=== PATIENT | female | born 1995 | race Two or more races ===

== ENCOUNTER 2017-06-16 14:03 | Emergency (ER) | payer OTHER ==
[2017-06-16 14:24] VITALS: BP 117/59; PULSE 70; TEMP 98.4; BMI 30.9
--- NOTE | 2017-06-16 15:30 | PDOC ---
History of Present Illness - General Chief Complaint: Chest Pain Stated Complaint: CHEST PAIN Time Seen by Provider: 06/16/17 14:53 History Source: Patient - History of Present Illness Timing/Duration: reports: other Associated Symptoms: reports: chest pain/soreness. denies: cough, fever/chills , lightheadedness, wheezing Past History - Past Medical History Allergies/Adverse Reactions: Allergies Allergy/AdvReac Type Severity Reaction Status Date / Time No Known Allergies Allergy Verified 06/16/17 14:19 Home Medications: Ambulatory Orders NK [No Known Home Medication] 06/16/17 Anemia: No Asthma: Yes (last used inhaler 05/23/16) Cancer: No Cardiac Disorders: No CVA: No COPD: No CHF: No Dementia: No Diabetes: No GI Disorders: No Disorders: No HTN: Yes (PI) Hypercholesterolemia: No Liver Disease: No Seizures: No Thyroid Disease: No - Reproductive History (#): 1 Para: 0 Therapeutic (s) & number: No Spontaneous : 0 - Immunization History Immunization Up to Date: Yes - Psycho/Social/Smoking Cessation Hx Anxiety: No Suicidal Ideation: No Smoking Status: No Smoking History: Never smoked Have you smoked in the past 12 months: No Number of Cigarettes Smoked Daily: 0 Hx Alcohol Use: No Drug/Substance Use Hx: No Substance Use Type: None Hx Substance Use Treatment: No Review of Systems - Review of Systems Constitutional: No: Chills, Fever Respiratory: No: Cough, Wheezing Cardiac (ROS): Yes: Chest Pain. No: Lightheadedness, Palpitations, Syncope ABD/GI: No: Nausea, Vomiting *Physical Exam - Vital Signs Last Vital Signs Temp Pulse Resp BP Pulse Ox 98.4 F 70 19 117/59 100 06/16/17 14:20 06/16/17 14:20 06/16/17 14:20 06/16/17 14:20 06/16/17 14:20 - Physical Exam General Appearance: Yes: Appropriately Dressed. No: Apparent Distress HEENT: positive: Normal Voice Neck: positive: Supple Respiratory/Chest: positive: Lungs Clear, Normal Breath Sounds. negative: Respiratory Distress Cardiovascular: positive: Regular Rate, S1, S2 Gastrointestinal/Abdominal: positive: Soft. negative: Tender Integumentary: positive: Dry, Warm Neurologic: positive: Fully Oriented, Alert, Normal Mood/Affect Heart Score/ECG Review - ECG Intrepretation Comment:: 06/16/17 16:11 Twelve-lead EKG was performed and reviewed by me. There is normal sinus rhythm with a normal rate. The axis is normal. The intervals are normal. There are no ST or T wave abnormalities. Impression: Normal twelve-lead EKG ED Treatment Course - RADIOLOGY Radiology Studies Ordered: Category Date Time Status CHEST PA & LAT [RAD] Stat Radiology 06/16/17 15:24 Ordered Medical Decision Making - Medical Decision Making 06/16/17 15:24 21 yo F, no sig hx, non-hormonal IUD in place, here w/ CP. Patient complaining of sharp, non-radiating substernal chest pain that lasts for seconds and then resolves x several weeks w/ no exacerbating/alleviating factors. Today, states she felt short of breath vs CP w/ deep respiration per pt and decided to come to ED for first time today for evaluation. No diaphoresis, dizziness, n/v, palpitations, leg pain or swelling. No recent URI sxs. No obvious RFs for DVT/ PE. See exam CP No pmhx Unlikely ACS or pericarditis, PERCs out Stable and well lorena in ED w/ unremarkable exam -ekg/cxr -anticipate dc w/ pmd f/u 06/16/17 15:29 06/16/17 16:11 EKG and CXR were normal. Pt stable for discharge w/ PMD f/u as needed *DC/Admit/Observation/Transfer Diagnosis at time of Disposition: Chest pain Qualifiers: Chest pain type: unspecified Qualified Code(s): R07.9 - Chest pain, unspecified - Discharge Dispostion Disposition: HOME Condition at time of disposition: Good - Patient Instructions Printed Discharge Instructions: DI for Atypical Chest Pain Additional Instructions: Your ekg and cxr were normal in ER today. If pain persists, please follow up with your PMD
--- NOTE | 2017-06-17 09:38 | EKG ---
Test Reason : Blood Pressure : / mmHG Vent. Rate : 069 BPM Atrial Rate : 069 BPM P-R Int : 158 ms QRS Dur : 088 ms QT Int : 410 ms P-R-T Axes : 023 041 025 degrees QTc Int : 439 ms NORMAL SINUS RHYTHM NORMAL ECG NO PREVIOUS ECGS AVAILABLE Confirmed by LOPEZ XIONG, FRANCI ([id number]) on 06/17/2017 9:37:45 AM Referred By: Confirmed By:FRANCI MARROQUIN MD
== END 2017-06-16 16:18 | disposition home or self-care (01) ==
LOC: JERFT 14:03
DX: R07.9 Chest pain, unspecified (principal)
CPT/HCPCS: 71020-TC; 84703; 93005; 93010; 99281-25

== ENCOUNTER 2018-04-14 21:50 | Emergency (ER) | payer OTHER ==
--- NOTE | 2018-04-14 21:59 | PDOC ---
History of Present Illness - General Chief Complaint: Nausea/Vomiting Stated Complaint: NA/NAUSEA/VOMITING Time Seen by Provider: 04/14/18 21:58 History Source: Patient Exam Limitations: No Limitations - History of Present Illness Initial Comments: 04/14/18 22:16 This is a 22-year-old female who comes in complaining of 2 weeks of headache associated with some nausea and vomiting. Patient last vomited 2 days ago. Patient says she feels nauseous and has had decreased appetite. Patient denies any neck pain or fevers. Patient has history of headaches in the past but she said they've never persisted as long as this one. Patient did not take anything for the headache. Patient denies any abdominal pain or diarrhea. Patient denies any photophobia. PAST MEDICAL HISTORY: no significant history PAST SURGICAL HISTORY: no significant history FAMILY HISTORY: no pertinant history SOCIAL HISTORY: Pt lives with family and is employed. MEDICATIONS: reviewed ALLERGIES: As per nursing notes Review of Systems General: No fevers or chills, no weakness, no weight loss HEENT: No change in vision. No sore throat,. No ear pain CardioVascular: No chest pain or shortness of breath Respiratory:No cough, or wheezing. Gastrointestinal: + nausea, + vomitting, no diarrhea or constipation, No rectal bleeding Genitourinary: No dysuria, hematuria, or frequency Musculoskeletal: No joint or muscle pain or swelling Neurologic: + headache, vertigo, dizziness or loss of consciousness Psychiatric: nor depression Skin: No rashes or easy bruising Endocrine: no increased thirst or abnormal weight change Allergic: no skin or latex allergy All other systems reviewed and normal GENERAL: The patient is awake, alert, and fully oriented, in no acute distress. HEAD: Normal with no signs of trauma. There is no tenderness over palpation of the frontal or maxillary sinuses. The neck is supple there is no meningeal signs or nuchal rigidity. EYES: Pupils equal, round and reactive to light, extraocular movements intact, sclera anicteric, conjunctiva clear. EXTREMITIES: Normal range of motion, no edema. NEUROLOGICAL: Normal speech, normal gait. grossly intact PSYCH: Normal mood, normal affect. SKIN: Warm, Dry, normal turgor, no rashes or lesions noted. Assessment and plan: This is a 22-year-old female who comes in complaining of headache with some nausea. Patient given Toradol and Pepcid with relief of her symptoms. Patient feels much better. Patient had a CAT scan that was negative for any acute intracranial pathology Patient's symptoms are most likely secondary to tension or migraine-type headache. Patient was reassured and discharged home. Patient given copies of her head CT report 04/14/18 23:17 Past History - Past Medical History Allergies/Adverse Reactions: Allergies Allergy/AdvReac Type Severity Reaction Status Date / Time No Known Allergies Allergy Verified 06/16/17 14:19 Home Medications: Ambulatory Orders NK [No Known Home Medication] 06/16/17 Anemia: No Asthma: Yes (last used inhaler 05/23/16) Cancer: No Cardiac Disorders: No CVA: No COPD: No CHF: No Dementia: No Diabetes: No GI Disorders: No Disorders: No HTN: Yes ([facility]) Hypercholesterolemia: No Liver Disease: No Seizures: No Thyroid Disease: No - Reproductive History (#): 1 Para: 0 Therapeutic (s) & number: No Spontaneous : 0 - Immunization History Immunization Up to Date: Yes - Suicide/Smoking/Psychosocial Hx Smoking Status: No Smoking History: Never smoked Have you smoked in the past 12 months: No Number of Cigarettes Smoked Daily: 0 Hx Alcohol Use: No Drug/Substance Use Hx: No Substance Use Type: None Hx Substance Use Treatment: No *DC/Admit/Observation/Transfer Diagnosis at time of Disposition: Headache Qualifiers: Headache type: tension-type Headache chronicity pattern: acute headache Intractability: not intractable Qualified Code(s): G44.209 - Tension-type headache, unspecified, not intractable - Discharge Dispostion Disposition: HOME Condition at time of disposition: Good Decision to Admit order: No - Referrals - Patient Instructions Additional Instructions: If the pain returns take Tylenol or Motrin as directed on the bottle. Return to the emergency department immediately with ANY new, persistent or worsening symptoms. Continue any medications as previously prescribed by your physician. You should follow up with your primary doctor as soon as possible regarding today's emergency department visit. . Please make sure your doctor reviews the results of your emergency evaluation. Thank you for coming to the Emergency Department today for your care. It was a pleasure to see you today. Please note that your evaluation is INCOMPLETE until you follow-up with your doctor. - Post Discharge Activity
[2018-04-14 22:02] VITALS: BP 100/62; PULSE 77; TEMP 98.5; BMI 19.7
[2018-04-14] MEDS ORDERED: KETOROLAC TROMETHAMINE 60 MG/2 ML VIAL IM ONE (22:15)
[2018-04-14] MEDS ORDERED: METOCLOPRAMIDE HCL 10 MG TABLET (FP) PO ONE ×2 (22:15→22:23)
[2018-04-14] MEDS ORDERED: KETOROLAC TROMETHAMINE 60 MG/2 ML VIAL ONE (22:23)
== END 2018-04-14 23:21 | disposition home or self-care (01) ==
LOC: FER 21:50
PROC: 3E0233Z Introduction of Anti-inflammatory into Muscle, Percutaneous Approach (ICD-10-PCS; principal; 2018-04-14)
DX: G44.209 Tension-type headache, unspecified, not intractable (principal); I10 Essential (primary) hypertension; J45.909 Unspecified asthma, uncomplicated
CPT/HCPCS: 70450-TC; 84703; 96372; 99282-25

== ENCOUNTER 2018-09-18 22:40 | Emergency (ER) | payer OTHER ==
[2018-09-18 22:53] VITALS: TEMP 97.8; BMI 30.9
--- NOTE | 2018-09-18 23:28 | PDOC ---
History of Present Illness - General Chief Complaint: Nausea/Vomiting Stated Complaint: NAUSEA/VOMITING Time Seen by Provider: 09/18/18 23:19 History Source: Patient - History of Present Illness Initial Comments: 09/18/18 23:36 The patient is a 22 year old female with a PMH of Asthma (no hospitalizations, no intubations) who presents to our ED c/o 3 week h/o vomiting. States she has been vomiting whitish emesis 2x daily for the last 3 weeks. Tolerating liquid PO intake. No fevers/chills, abdominal pain, diarrhea/constipation, dysuria/ hematuria. Last BM was prior to presentation and was normal. Denies any possibility of . States she was evaluated at [facility] 2-3 weeks previous for her symptoms at which time urine was negative and she was discharged home with supportive care. NKDA Surgical: C/S Social: denies toxic habits PMD: recently retired, will refer to resident clinic Past History - Past Medical History Allergies/Adverse Reactions: Allergies Allergy/AdvReac Type Severity Reaction Status Date / Time No Known Allergies Allergy Verified 09/18/18 23:55 Home Medications: Ambulatory Orders NK [No Known Home Medication] 06/16/17 Anemia: No Asthma: Yes (last used inhaler 05/23/16) Cancer: No Cardiac Disorders: No CVA: No COPD: No CHF: No Dementia: No Diabetes: No GI Disorders: No Disorders: No HTN: Yes (PIH) Hypercholesterolemia: No Liver Disease: No Seizures: No Thyroid Disease: No - Reproductive History (#): 1 Para: 0 Therapeutic (s) & number: No Spontaneous : 0 - Immunization History Immunization Up to Date: Yes - Suicide/Smoking/Psychosocial Hx Smoking Status: No Smoking History: Never smoked Have you smoked in the past 12 months: No Number of Cigarettes Smoked Daily: 0 Hx Alcohol Use: No Drug/Substance Use Hx: No Substance Use Type: None Hx Substance Use Treatment: No Review of Systems - Review of Systems Constitutional: No: Chills, Fever HEENTM: No: Blurred Vision, Double Vision Respiratory: No: Cough, Shortness of Breath Cardiac (ROS): No: Chest Pain, Lightheadedness, Palpitations, Syncope ABD/GI: Yes: Nausea, Vomiting. No: Constipated, Diarrhea, Abdominal cramping, Tarry Stools : No: Burning, Dysuria *Physical Exam - Vital Signs Last Vital Signs Temp Pulse Resp BP Pulse Ox 97.8 F 76 20 119/72 98 09/18/18 22:51 09/18/18 22:51 09/18/18 22:51 09/18/18 22:51 09/18/18 22:51 - Physical Exam General Appearance: Yes: Nourished, Obese HEENT: positive: Normal Voice, Sinus Tenderness Neck: positive: Trachea midline, Supple Respiratory/Chest: positive: Lungs Clear, Normal Breath Sounds. negative: Labored Respiration, Rapid RR Cardiovascular: positive: S1, S2, Systolic Murmur Gastrointestinal/Abdominal: positive: Normal Bowel Sounds, Soft. negative: Distended, Guarding, Rebound, Tenderness, Hernia, Mass Musculoskeletal: negative: CVA Tenderness (R), CVA Tenderness (L) Extremity: positive: Normal Capillary Refill, Normal Inspection Integumentary: positive: Normal Color, Dry, Warm Neurologic: positive: Fully Oriented, Alert Moderate Sedation - Procedure Monitoring Vital Signs: Procedure Monitoring Vital Signs Temperature 97.8 F 09/18/18 22:51 Pulse Rate 76 09/18/18 22:51 Respiratory Rate 20 09/18/18 22:51 Blood Pressure 119/72 09/18/18 22:51 O2 Sat by Pulse Oximetry (%) 98 09/18/18 22:51 ED Treatment Course - LABORATORY CBC & Chemistry Diagram: 09/18/18 23:50 09/18/18 23:50 Medical Decision Making - Medical Decision Making 09/18/18 23:36 22 year old female presents with three week h/o NBNB emesis. VS unremarkable. Frontal diagnosis: gastritis, , cyclic vomiting syndrome. Will obtain CMP to r/o electrolyte derangement 2/2 to emesis. Urine . IV fluid + Zofran. Reassess. 09/19/18 00:48 CBC shows mild leukocytosis (12.6) likely reactive CMP shows mildly elevated alkaline phosphate (125) - suggestive of bilary colic. 09/19/18 01:51 Urine negative. Patient symptomatically improved, alert, ambulatory. At this time, patient safe for d/c home. Clinical impression includes gastritis vs food sensitivity vs bilary colic. Patient counseled to avoid fatty foods. Will refer to resident clinic *DC/Admit/Observation/Transfer Diagnosis at time of Disposition: Nausea & vomiting - Discharge Dispostion Disposition: HOME Condition at time of disposition: Good Decision to Admit order: No - Referrals Referrals: Warren Jacinto MD [Staff Physician] - - Patient Instructions Printed Discharge Instructions: DI for Nausea -- Adult, DI for Vomiting -- Adult Additional Instructions: You were evaluated today for nausea and vomiting. Your labs showed no concerning findings and your test was negative. At this time you are safe for discharge home. Please make a follow-up appointment with Dr. Orville Kelley to establish primary care and for further evaluation. Your care is not complete until you follow-up with a primary care doctor. Return to the Emergency Department for any new/worsening/concerning symptoms. - Post Discharge Activity
[2018-09-18] MEDS ORDERED: SODIUM CHLORIDE 0.9% 500 ML INFUS.BAG IV ONE (23:32)
[2018-09-18] MEDS ORDERED: ONDANSETRON 4 MG/2 ML VIAL IVPUSH ONE (23:33)
[2018-09-18] MEDS ORDERED: ONDANSETRON 4 MG/2 ML VIAL ONE (23:36)
[2018-09-19 00:05] LABS: BASO % 0.7 % (0-2.0); EOS % 2.1 % (0-4.5); HEMATOCRIT 35.5 % (32.4-45.2); HEMOGLOBIN 12.1 GM/dL (10.7-15.3); LYMPH % 31.9 % (8-40); MCH 29.8 pg (25.7-33.7); MCHC 34.1 g/dl (32.0-36.0); MEAN CELL VOLUME 87.4 fl (80-96); MEAN PLT VOLUME 9.5 fl (7.5-11.1); NEUT % 58.3 % (42.8-82.8); PLATELET COUNT 263 K/MM3 (134-434); RBC 4.06 M/mm3 (3.60-5.2); RDW 13.4 % (11.6-15.6); WHITE BLOOD COUNT 12.3 K/mm3 (4.0-10.0)
--- NOTE | 2018-09-19 01:01 | PDOC ---
Attending Attestation - HPI HPI: 09/19/18 01:25 The patient is a 22 year old female with a significant PMH of asthma with no prior intubations or hospitalizations who presents to the emergency department with nausea and vomiting for the past 3 weeks. Patient states she is experiencing white colored vomit at least twice daily. Patient has been unable to tolerate solid food intake, but is able to hold down liquids. Patient ate prior to coming to the ED, but also vomited immediately after. Patient was evaluated at [facility] two weeks ago, and was told she was not then. The patient denies abdominal pain, chest pain, shortness of breath, headache and dizziness. Denies fever, chills, diarrhea and constipation. Denies dysuria, frequency, urgency and hematuria. Allergies: NKA Past surgical history: None reported. Social history: No reported drug or cigarette use. Social drinker. <Catherine Arnold - Last Filed: 09/19/18 01:25> - Resident Resident Name: Paris Cardona - ED Attending Attestation I have performed the following: I have examined & evaluated the patient, The case was reviewed & discussed with the resident, I agree w/resident's findings & plan - HPI HPI: 09/19/18 02:09 Pt has no weight loss and she appears well and well hydrated. - Physicial Exam PE: 09/19/18 02:08 Agree with resident exam - Medical Decision Making 09/19/18 02:08 Pt has normal labs and her alk phos is minimally elevated. She has no other findings. She appears well. She mentions that she has mostly post tussive vomiting and that it all began with the cold weather. She has no wheezing today. She will be discharged home <Leann Maldonado - Last Filed: 09/19/18 02:10>
[2018-09-19 01:19] LABS: ALBUMIN 3.5 g/dl (3.4-5.0); ALK PHOS 125 U/L (45-117); ANION GAP 8 MMOL/L (8-16); BILIRUBIN,TOTAL 0.2 mg/dL (0.2-1); BLOOD UREA NITROGEN 17 mg/dL (7-18); CALCIUM 8.5 mg/dL (8.5-10.1); CHLORIDE 110 mmol/L (98-107); CO2 22 mmol/L (21-32); CREATININE 0.9 mg/dL (0.55-1.3); GLUCOSE,RANDOM 92 mg/dL (74-106); POTASSIUM 4.3 mmol/L (3.5-5.1); SGOT/AST 26 U/L (15-37); SGPT/ALT 39 U/L (13-61); SODIUM 141 mmol/L (136-145); TOT PROT 7.4 g/dl (6.4-8.2)
[2018-09-19 02:10] VITALS: BP 120/64; PULSE 72
== END 2018-09-19 02:10 | disposition home or self-care (01) ==
LOC: JER 22:40
PROC: 3E033GC Introduction of Other Therapeutic Substance into Peripheral Vein, Percutaneous Approach (ICD-10-PCS; principal; 2018-09-18)
DX: R11.2 Nausea with vomiting, unspecified (principal); J45.909 Unspecified asthma, uncomplicated; I10 Essential (primary) hypertension
CPT/HCPCS: 36415; 80053; 84703; 85025; 96374; 99282-25

== ENCOUNTER 2019-02-14 16:35 | Emergency (ER) | payer OTHER ==
[2019-02-14 16:45] VITALS: BP 107/50; PULSE 70; TEMP 98.2; BMI 42.9
--- NOTE | 2019-02-14 16:51 | PDOC ---
Rapid Medical Evaluation Chief Complaint: Back Pain Time Seen by Provider: 02/14/19 16:41 Medical Evaluation: Allergies Allergy/AdvReac Type Severity Reaction Status Date / Time No Known Allergies Allergy Verified 02/14/19 16:42 02/14/19 16:44 Pt presents to the ED with c/o: lbp x 1 week, denies lbp/sciatica, pt went to urgent care clinic and received toradol im which she states pain worsened Pt on brief exam: l3-5 tenderness with sciatica tenderness, no abd pain Pt ordered for: urine and lumbar xray Pt to proceed to the ED
[2019-02-14] MEDS ORDERED: diazePAM 5 MG TABLET PO ONE (17:16)
[2019-02-14] MEDS ORDERED: diazePAM 5 MG TABLET ONE (17:21)
--- NOTE | 2019-02-14 17:25 | PDOC ---
History of Present Illness - General Chief Complaint: Back Pain Stated Complaint: LOWER BACK PAIN Time Seen by Provider: 02/14/19 16:41 History Source: Patient Exam Limitations: No Limitations - History of Present Illness Initial Comments: 02/14/19 17:17 Patient came after being seen by PMD today at [address] [place] [address] for worsened back pain. States had onset of pain flexibly one week ago and is progressively worsened. Was seen there today, given injection of Toradol, order for MRI of lumbar spine was written but no insurance approval obtained and patient given prescription for cyclobenzaprine, Naprosyn, and gabapentin. She did not taken any of those medications other than the injection of Toradol at the clinic, but came to emergency department because she felt her pain was worsening. Denies fever, denies URI symptoms or any abdominal symptoms. 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 Has 2-year-old son that weighs 50 pounds, so combined with car seats, strollers, and caring son 02/14/19 19:54 Occurred: reports: last week Severity: reports: moderate, severe Pain Location: reports: back Method of Injury: Yes: unknown Loss of Consciousness: no loss of consciousness Associated Symptoms (Fall): denies symptoms, muscle spasms Past History - Travel Traveled outside of the country in the last 30 days: No Close contact w/someone who was outside of country & ill: No - Past Medical History Allergies/Adverse Reactions: Allergies Allergy/AdvReac Type Severity Reaction Status Date / Time No Known Allergies Allergy Verified 02/14/19 16:42 Home Medications: Ambulatory Orders NK [No Known Home Medication] 06/16/17 Anemia: No Asthma: Yes (last used inhaler 05/23/16) Cancer: No Cardiac Disorders: No CVA: No COPD: No CHF: No Dementia: No Diabetes: No GI Disorders: No Disorders: No HTN: Yes (PI) Hypercholesterolemia: No Liver Disease: No Seizures: No Thyroid Disease: No - Reproductive History (#): 1 Para: 0 Therapeutic (s) & number: No Spontaneous : 0 - Immunization History Immunization Up to Date: Yes - Suicide/Smoking/Psychosocial Hx Smoking Status: No Smoking History: Never smoked Have you smoked in the past 12 months: No Number of Cigarettes Smoked Daily: 0 Information on smoking cessation initiated: No Hx Alcohol Use: No Drug/Substance Use Hx: No Substance Use Type: None Hx Substance Use Treatment: No Review of Systems - Review of Systems Able to Perform ROS?: Yes Is the patient limited [place] proficient: Yes Constitutional: Yes: Symptoms Reported, See HPI, Malaise. No: Chills, Fever HEENTM: No: Symptoms Reported Respiratory: Yes: Symptoms reported, See HPI Musculoskeletal: Yes: Symptoms Reported, See HPI, Back Pain, Muscle Pain, Muscle Weakness Integumentary: Yes: Symptoms Reported, See HPI Neurological: Yes: Symptoms reported, See HPI All Other Systems: Reviewed and Negative *Physical Exam - Vital Signs Last Vital Signs Temp Pulse Resp BP Pulse Ox 98.2 F 70 16 107/50 L 99 02/14/19 16:42 02/14/19 16:42 02/14/19 16:42 02/14/19 16:42 02/14/19 16:42 - Physical Exam General Appearance: Yes: Nourished, Appropriately Dressed, Apparent Distress, Moderate Distress HEENT: positive: EOMI, RENÉE, Normal ENT Inspection, TMs Normal, Pharynx Normal Neck: positive: Supple. negative: Tender Respiratory/Chest: positive: Lungs Clear, Normal Breath Sounds Musculoskeletal: positive: Normal Inspection, Muscle Spasm (tense tight musculature at waistline and below to upper sacral area with palpable spasm noted bilaterally, worse on the right than the left. Unable to flex and extend waist due to the spasm pain radiates through buttock midpoint and down posterior aspect. Ambulatory but walks slowly. Neurovascular intact to feet , no saddle anesthesia.). negative: Vertebral Tenderness (has no true vertebral tenderness or crepitus.) Extremity: positive: Normal Capillary Refill, Normal Inspection, Normal Range of Motion. negative: Tender Integumentary: positive: Normal Color, Dry, Warm Neurologic: positive: manager storage II-XII NML intact, Fully Oriented, Alert, Normal Mood/ Affect, Normal Response, Motor Strength 5/5 Progress Note - Progress Note Progress Note: Severe low back spasm, will follow-up with PMD in one to 2 days and has order for MRI of lumbar spine but has not discussed with insurance carrier thus far. Has not filled any of her prescriptions prescribed by her PMD and will do so on the way home, given 1 dose of Valium 5 mg here in addition to the Toradol given in private physicians office will follow NSAIDs in antispasmodic regime *DC/Admit/Observation/Transfer Diagnosis at time of Disposition: Low back strain Qualifiers: Encounter type: initial encounter Qualified Code(s): S39.012A - Strain of muscle, fascia and tendon of lower back, initial encounter - Discharge Dispostion Disposition: HOME Condition at time of disposition: Stable Decision to Admit order: No - Referrals Referrals: Emory Martinez MD [Primary Care Provider] - - Patient Instructions Printed Discharge Instructions: DI for Back Strain or Sprain Additional Instructions: Rest, no heavy lifting or exercise until pain is resolved Hot soaks to neck and low back as often as possible/hot showers or Jacuzzis No massage or therapy until spasm is gone Continue Naprosyn 500 mg tablet, 1 tablet every 8 hours for the next 3 days then as needed for pain and swelling Cyclobenzaprine 1-10mg every 8 hours as needed for spasm If not significant improvement within 24 hours with medication and rest regime, followup with private physician for change in medications and /or therapy. - Post Discharge Activity Forms/Work/School Notes: Back to Work
== END 2019-02-14 17:40 | disposition home or self-care (01) ==
LOC: JERFT 16:35
DX: S39.012A Strain of muscle, fascia and tendon of lower back, initial encounter (principal); X50.0XXA Overexertion from strenuous movement or load, initial encounter; X50.9XXA Other and unspecified overexertion or strenuous movements or postures, initial encounter; Y93.89 Activity, other specified; Y92.89 Other specified places as the place of occurrence of the external cause; Y99.8 Other external cause status; M62.830 Muscle spasm of back
CPT/HCPCS: 84703; 99281-25

== ENCOUNTER 2019-02-17 18:26 | Emergency (ER) | payer OTHER ==
[2019-02-17 18:44] VITALS: TEMP 98; BMI 42.7
[2019-02-17] MEDS ORDERED: predniSONE 20 MG TABLET (UD) PO ONE (19:40)
[2019-02-17] MEDS ORDERED: predniSONE 20 MG TABLET (UD) ONE (19:43)
--- NOTE | 2019-02-17 19:48 | PDOC ---
Documentation entered by Shobha Rincon SCRIBE, acting as scribe for Cora Rodgers MD. Cora Rodgers MD: This documentation has been prepared by the Sergey rasmussen Lincy, SCRIBE, under my direction and personally reviewed by me in its entirety. I confirm that the documentation accurately reflects all work, treatment, procedures, and medical decision making performed by me. History of Present Illness - General Chief Complaint: Back Pain Stated Complaint: LOW BACK PAIN History Source: Patient Exam Limitations: No Limitations - History of Present Illness Initial Comments: 02/17/19 19:55 The patient is a 23-year-old female with a past medical history significant for asthma presents to the emergency department with lower back pain. The patient presents with 2 weeks of lower back pain that radiates down to the left thigh, associated with left thigh tingling. The patient reports the pain is sharp in quality, thats aggravated with sitting or walking. The patient reports following up with PCP on 02/14 for the pain who prescribed the patient cyclobenzaprine, Naprosyn, and gabapentin. The patient reports being compliant with the medication without relief. The patient reports following up with PCP again yesterday (02/16), who increased the dosage of the medication. The patient reports she is walking for insurance approval for a lumbar MRI. Denies dysuria or hx of kidney stones. Denies urinary or bowel incontinence or saddle anesthesia Allergies: NKDA Social history: No tobacco, alcohol or recreational drug use reported. PCP: Dr. Aponte. Past History - Past Medical History Allergies/Adverse Reactions: Allergies Allergy/AdvReac Type Severity Reaction Status Date / Time No Known Allergies Allergy Verified 02/17/19 19:15 Home Medications: Ambulatory Orders Cyclobenzaprine HCl [Flexeril 10 mg] 10 mg PO TID PRN 02/17/19 Gabapentin [Neurontin] 300 mg PO TID 02/17/19 Methylprednisolone [Medrol Dose Syed] 4 mg PO ASDIR #21 tablet 02/17/19 Naproxen [Naprosyn -] 500 mg PO BID PRN 02/17/19 Anemia: No Asthma: Yes (last used inhaler 05/23/16) Cancer: No Cardiac Disorders: No CVA: No COPD: No CHF: No Dementia: No Diabetes: No GI Disorders: No Disorders: No HTN: Yes (PIH) Hypercholesterolemia: No Liver Disease: No Seizures: No Thyroid Disease: No - Reproductive History (#): 1 Para: 0 Therapeutic (s) & number: No Spontaneous : 0 - Immunization History Immunization Up to Date: Yes - Suicide/Smoking/Psychosocial Hx Smoking Status: No Smoking History: Never smoked Have you smoked in the past 12 months: No Number of Cigarettes Smoked Daily: 0 Hx Alcohol Use: No Drug/Substance Use Hx: No Substance Use Type: None Hx Substance Use Treatment: No Review of Systems - Review of Systems Able to Perform ROS?: Yes Comments:: 02/17/19 19:55 GENERAL/CONSTITUTIONAL: No fever or chills. No weakness. HEAD, EYES, EARS, NOSE AND THROAT: No change in vision. No ear pain or discharge. No sore throat. CARDIOVASCULAR: No chest pain or shortness of breath. RESPIRATORY: No cough, wheezing, or hemoptysis. GASTROINTESTINAL: No nausea, vomiting, diarrhea or constipation. GENITOURINARY: No dysuria, frequency, or change in urination. MUSCULOSKELETAL: +lower back pain that radiates to the left thigh. No joint or muscle swelling or pain. No neck or upper back pain. SKIN: No rash NEUROLOGIC: No headache, vertigo, loss of consciousness, or change in strength/ sensation. ENDOCRINE: No increased thirst. No abnormal weight change. HEMATOLOGIC/LYMPHATIC: No anemia, easy bleeding, or history of blood clots. ALLERGIC/IMMUNOLOGIC: No hives or skin allergy. *Physical Exam - Vital Signs Last Vital Signs Temp Pulse Resp BP Pulse Ox 98.0 F 72 16 148/100 100 02/17/19 18:28 02/17/19 18:28 02/17/19 18:28 02/17/19 18:28 02/17/19 18:28 - Physical Exam Comments: 02/17/19 19:55 GENERAL: Awake, alert, and fully oriented, in no acute distress HEAD: No signs of trauma EYES: PERRLA, EOMI, sclera anicteric, conjunctiva clear ENT: Auricles normal inspection, hearing grossly normal, nares patent. Moist mucosa NECK: Normal ROM, supple, no lymphadenopathy, JVD, or masses LUNGS: Breath sounds equal, clear to auscultation bilaterally. No wheezes, and no crackles HEART: Regular rate and rhythm, normal S1 and S2, no murmurs, rubs or gallops ABDOMEN: Soft, nontender. No guarding, no rebound. No masses EXTREMITIES: +Negative straight leg, 5/5 strength bilaterally to the lower extremity. Sensation intact. Normal range of motion, no edema. No erythema or tenderness. DP/PT pulses 2+ and symmetric. Warm and well perfused. NEUROLOGICAL: Moves all extremities. Normal speech, normal gait SKIN: Warm, Dry, normal turgor, no rashes or lesions noted. Medical Decision Making - Medical Decision Making 02/17/19 19:45 pt is a 23 yo obese female here with low back pain, was seen for the same 02/14, 4 days ago and seen by her pcp yesterday. has been taking flexeril, gabapanetin , and naproxen, mild relief. no bowel or bladder incontinence, no fever or chills. no urinary complaints. no new weakness. pain radiates down her left leg to her knee, occasionally past her knee. worse wtih movement and bending, or going from sitting to standing. only injury was slipped at work 2 mo ago but states she landed forward on her knees. 02/17/19 20:04 pt ambulating without difficulty. given percocet and prednisone. dc home. rx for medrol dose syed sent to pharmacy. referral to nuerology. *DC/Admit/Observation/Transfer Diagnosis at time of Disposition: Low back strain - Discharge Dispostion Disposition: HOME Condition at time of disposition: Good Decision to Admit order: No - Prescriptions Prescriptions: Methylprednisolone [Medrol Dose Syed] 4 mg PO ASDIR #21 tablet - Referrals Referrals: Helder Aponte MD [Primary Care Provider] - Curtis Du MD [Staff Physician] - - Patient Instructions Printed Discharge Instructions: Back Pain (Alternative Therapy) Additional Instructions: you should avoid heavy lifting for at least one week. seek referral for physical therapy from your primary doctor. you can also follow up with a nuerologist. see referal information for dr Du. call to schedule. return for sudden onset leg weakness, bowel or bladder incontinence, numbness or any concerns. you should follow up with the out patient MRI prescribed by your primary doctor. continue taking gabapentin, flexeril and the naproxen as prescribed by your primary doctor. nan ddition you can take a steroid course " Medrol Dose Syed " that i have prescribed. take as instructed daily to help with inflammation in your back. - Post Discharge Activity Forms/Work/School Notes: Back to Work
[2019-02-17 20:07] VITALS: BP 130/80; PULSE 66
== END 2019-02-17 20:15 | disposition home or self-care (01) ==
LOC: FER 18:26
DX: S39.012A Strain of muscle, fascia and tendon of lower back, initial encounter (principal); X58.XXXA Exposure to other specified factors, initial encounter; Y93.89 Activity, other specified; Y92.89 Other specified places as the place of occurrence of the external cause; E66.9 Obesity, unspecified; I10 Essential (primary) hypertension; J45.909 Unspecified asthma, uncomplicated
CPT/HCPCS: 99282-25

== ENCOUNTER 2019-06-19 21:12 | Emergency (ER) | payer OTHER ==
--- NOTE | 2019-06-19 21:16 | PDOC ---
History of Present Illness - General Chief Complaint: Chest Pain Stated Complaint: CHEST PAIN X 2 WEEKS Time Seen by Provider: 06/19/19 21:15 History Source: Patient Exam Limitations: No Limitations - History of Present Illness Initial Comments: 06/19/19 21:22 This is an moderately obese 23-year-old female who comes in complaining of 2 weeks of pleuritic-type chest pain. Patient said it's worse when she takes a deep breath. Patient's also says that eating makes it worse. Patient has not been taking anything for it has not taken any anti-inflammatories or any antacids. Patient otherwise denies any nausea vomiting or diarrhea. Patient denies any radiation of the pain. Patient denies taking any medications and is otherwise healthy. Allergies: as per nursing notes Past Medical History: none Social history: Lives with family. No smoking. No alcohol. No illicit drugs. Surgical history: None General: No fevers or chills, no weakness, no weight loss HEENT: No change in vision. No sore throat,. No ear pain CardioVascular: + chest discomfort. No shortness of breath Respiratory:No cough, or wheezing. Gastrointestinal: no nausea, vomiting, diarrhea or constipation, No rectal bleeding Genitourinary: No dysuria, hematuria, or frequency Musculoskeletal: No joint or muscle pain or swelling Neurologic: No headache, vertigo, dizziness or loss of consciousness Psychiatric: nor depression Skin: No rashes or easy bruising Endocrine: no increased thirst or abnormal weight change Allergic: no skin or latex allergy All other systems reviewed and normal Exam: General: Well-nourished well-developed individual, no acute distress HEENT: Throat: Normal, tonsils normal, no erythema or exudate Neck: Supple, no meningeal signs, no lymphadenopathy Eyes::Pupils equal reactive and round, extraocular motion intact Chest: Pain is reproduced on palpation Cardiac: S1-S2 normal, regular rate and rhythm, no murmurs rubs or gallops Respiratory: Lungs clear to auscultation bilateral Abdomen: Soft, nondistended, normal bowel sounds, there is no tenderness on palpation diffusely Extremities: Warm, dry, no cyanosis, clubbing, or edema Skin: No rashes Neuro: Alert and oriented x3, CN II - XII intact, nonfocal exam with normal strength, normal sensation, normal reflexes, normal gait, Psych: Normal mood and affect 06/19/19 21:30 EKG shows normal sinus rhythm, normal intervals no acute ST and T-wave changes normal EKG. Assessment and plan: This is a 23-year-old female who comes in with 2 weeks of pleuritic-type chest pain. Patient was given an anti-inflammatory. I had an EKG that was normal and given an antacid. Patient discharged home and told to take an antacid half hour before eating and an anti-inflammatory. Past History - Past Medical History Allergies/Adverse Reactions: Allergies Allergy/AdvReac Type Severity Reaction Status Date / Time No Known Allergies Allergy Verified 06/19/19 21:14 Home Medications: Ambulatory Orders Albuterol Sulfate Inhaler - 06/19/19 *Physical Exam - Vital Signs Last Vital Signs Temp Pulse Resp BP Pulse Ox 97.9 F 72 16 115/65 100 06/19/19 21:16 06/19/19 21:16 06/19/19 21:16 06/19/19 21:16 06/19/19 21:16 *DC/Admit/Observation/Transfer Diagnosis at time of Disposition: Chest pain, pleuritic - Discharge Dispostion Disposition: HOME Condition at time of disposition: Stable Decision to Admit order: No - Referrals - Patient Instructions Printed Discharge Instructions: DI for Atypical Chest Pain Additional Instructions: For the pain take Tylenol 2 extra strength tablets as often as every 4-6 hours. In addition to the Tylenol take an antacid such as Pepcid or Zantac as directed on the box it is [id number]. Call your primary care doctor Thursday and get an appointment to follow- up. Return to the emergency department immediately with ANY new, persistent or worsening symptoms. Continue any medications as previously prescribed by your physician. You should follow up with your primary doctor as soon as possible regarding today's emergency department visit. . Please make sure your doctor reviews the results of your emergency evaluation. Thank you for coming to the Emergency Department today for your care. It was a pleasure to see you today. Please note that your evaluation is INCOMPLETE until you follow-up with your doctor. - Post Discharge Activity
[2019-06-19] MEDS ORDERED: KETOROLAC TROMETHAMINE 60 MG/2 ML VIAL IM ONE (21:21)
[2019-06-19] MEDS ORDERED: MAG HYDROX/AL HYDROX/SIMETH -MYLANTA- ORAL SUSPENSION PO ONE (21:21)
[2019-06-19 21:23] VITALS: BP 115/65; PULSE 72; TEMP 97.9; BMI 30.9
[2019-06-19] MEDS ORDERED: KETOROLAC TROMETHAMINE 60 MG/2 ML VIAL ONE (21:23)
[2019-06-19] MEDS ORDERED: MAG HYDROX/AL HYDROX/SIMETH 30 ML UNIT-DOSE CUP ONE (21:23)
[2019-06-19] MEDS ORDERED: INSULIN (LEVEMIR) 100 UNITS/ML UNITS SQ ONE (21:34)
--- NOTE | 2019-06-20 08:52 | EKG ---
Test Reason : Blood Pressure : / mmHG Vent. Rate : 061 BPM Atrial Rate : 061 BPM P-R Int : 146 ms QRS Dur : 084 ms QT Int : 418 ms P-R-T Axes : 031 046 023 degrees QTc Int : 420 ms NORMAL SINUS RHYTHM WITH SINUS ARRHYTHMIA NORMAL ECG NO PREVIOUS ECGS AVAILABLE Confirmed by LOPEZ XIONG, FRANCI ([id number]) on 06/20/2019 8:52:20 AM Referred By: MIKKI TSE Confirmed By:FRANCI MARROQUIN MD
== END 2019-06-19 21:45 | disposition home or self-care (01) ==
LOC: MERGE 21:12 → FER 21:12
DX: R07.89 Other chest pain (principal)
CPT/HCPCS: 93005; 99281-25

== ENCOUNTER 2019-10-20 20:24 | Emergency (ER) | payer OTHER ==
[2019-10-20 20:29] VITALS: BP 117/58; PULSE 80; TEMP 97.7; BMI 32.5
[2019-10-20] MEDS ORDERED: KETOROLAC TROMETHAMINE 30 MG/1 ML VIAL IVPUSH ONE (21:15)
[2019-10-20] MEDS ORDERED: KETOROLAC TROMETHAMINE 30 MG/1 ML VIAL ONE (21:23)
[2019-10-20 22:06] LABS: BASO % 0.7 % (0-2.0); EOS % 4.2 % (0-4.5); HEMATOCRIT 38.3 % (32.4-45.2); HEMOGLOBIN 12.6 GM/dl (10.7-15.3); LYMPH % 43.5 % (8-40); MCH 29.4 pg (25.7-33.7); MCHC 32.8 g/dl (32.0-36.0); MEAN CELL VOLUME 89.6 fl (80-96); MEAN PLT VOLUME 9.4 fl (7.5-11.1); MONO % 9.4 % (3.8-10.2); NEUT % 42.2 % (42.8-82.8); PLATELET COUNT 211 K/MM3 (134-434); RBC 4.28 M/mm3 (3.60-5.2); RDW 12.1 % (11.6-15.6); WHITE BLOOD COUNT 5.2 K/mm3 (4.0-10.8)
[2019-10-20] MEDS ORDERED: METHOCARBAMOL 500 MG TABLET ONE (22:14)
[2019-10-20 22:15] LABS: ALBUMIN 3.3 g/dl (3.4-5.0); BILIRUBIN,TOTAL 0.9 mg/dl (0.2-1); CALCIUM 7.8 mg/dl (8.5-10); CREATININE 0.8 mg/dl (0.55-1.3); POTASSIUM 4.1 mmol/L (3.5-5.1); TOT PROT 6.8 g/dl (6.4-8.2)
[2019-10-20] MEDS ORDERED: METHOCARBAMOL 500 MG TABLET PO ONE (22:19)
--- NOTE | 2019-10-20 23:08 | PDOC ---
Documentation entered by Shobha Rincon SCRIBE, acting as scribe for Reyna Fine MD. Reyna Fine MD: This documentation has been prepared by the adamaibe, Shobha Rincon SCRIBE, under my direction and personally reviewed by me in its entirety. I confirm that the documentation accurately reflects all work, treatment, procedures, and medical decision making performed by me. History of Present Illness - General Chief Complaint: Back Pain Stated Complaint: BACK PAIN RAD TO RIGHT LEG, COUGH Time Seen by Provider: 10/20/19 20:27 History Source: Patient Exam Limitations: No Limitations - History of Present Illness Initial Comments: 10/20/19 21:40 The patient is a 23-year-old female with a past medical history significant for asthma who presents to the emergency department with back pain, abdominal pain, cough, and chest pain. The patient presents with 1 week of lower back pain that radiates down to the right leg. The patient reports about a week ago she was sitting down when she had a sudden onset of sharp pain to the lower back. The patient states she took some methocarbamol for the pain, which put her to sleep , and when she woke up, she felt stiff. The patient reports 2 days following the onset, the pain started to radiate to the right leg. Denies saddle anesthesia or urinary incontinence. Denies falls, trauma, or any strenuous activities. The patient reports an additional complaint of a cough, chest pain, abdominal pain. The patient reports the chest pain and nausea might be attributed to the episodes of coughing. The patient states shes been having 1 week of abdominal pain, more felt towards the upper quadrants. Denies vomiting, diarrhea, or constipation. 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 Past History - Past Medical History Allergies/Adverse Reactions: Allergies Allergy/AdvReac Type Severity Reaction Status Date / Time No Known Allergies Allergy Verified 10/20/19 20:25 Home Medications: Ambulatory Orders Albuterol Sulfate Inhaler - [Ventolin Hfa Inhaler -] 1 - 2 inh PO QID PRN Methocarbamol 750 mg PO Q4H 10/20/19 Lidocaine 5% Patch [Lidoderm Patch -] 1 patch TP DAILY PRN #30 patch 10/21/19 Methylprednisolone [Medrol Dose Syed] 4 mg PO ASDIR #21 tablet 10/21/19 Naproxen Sodium [Anaprox Ds] 550 mg PO BID PRN #20 tablet 10/21/19 Anemia: No Asthma: Yes Cancer: No Cardiac Disorders: No CVA: No COPD: No CHF: No Dementia: No Diabetes: No GI Disorders: No Disorders: No HTN: Yes (PIH) Hypercholesterolemia: No Liver Disease: No Seizures: No Thyroid Disease: No - Reproductive History (#): 1 Para: 0 Therapeutic (s) & number: No Spontaneous : 0 - Immunization History Immunization Up to Date: Yes - Psycho Social/Smoking Cessation Hx Smoking Status: No Smoking History: Never smoked Have you smoked in the past 12 months: No Number of Cigarettes Smoked Daily: 0 Information on smoking cessation initiated: No Hx Alcohol Use: No Drug/Substance Use Hx: No Substance Use Type: None Hx Substance Use Treatment: No Review of Systems - Review of Systems Able to Perform ROS?: Yes Comments:: 10/20/19 21:41 Constitutional - Pt denies fever, Chills, weakness, HEENT: denies vision changes, sore throat Respiratory: +cough. Denies sob, hemoptysis Cardiac: +chest pain. denies palpitations, lightheadedness, leg swelling Abd/GI: +abdominal pain, nausea. denies vomiting, blood per rectum, melena, diarrhea : denies dysuria, frequency, discharge Musculoskeletal - +back pain. denies joint swelling skin - denies bruising, erythema, rash neurological: denies headache, numbness, focal weakness, tingling, ataxia, weakness hematologic: denies anemia, easy bruising, easy bleeding. *Physical Exam - Vital Signs Last Vital Signs Temp Pulse Resp BP Pulse Ox 97.7 F 80 18 117/58 L 99 10/20/19 20:24 10/20/19 20:24 10/20/19 20:24 10/20/19 20:24 10/20/19 20:24 - Physical Exam 10/20/19 22:13 GENERAL: +appears uncomfortable. Awake, alert and oriented. The patient is in no acute distress. ENT: Ears normal, nares patent, oropharynx clear without exudates. Moist mucous membranes. NECK: Normal range of motion, supple, no nuchal rigidity LUNGS: Breath sounds equal, clear to auscultation bilaterally. No wheezes, and no crackles. HEART: Regular rate and rhythm, normal S1 and S2 without murmurs, rubs or gallops. ABDOMEN: +epigastric tenderness. No guarding, no rebound. No masses palpable. BACK: no point tenderness, lumbar spine tenderness to palpation, lower back muscles tenderness to palpation. No swelling. Straight leg raise test positive on extension. EXTREMITIES: Normal range of motion, no edema. NEUROLOGICAL: Answering all questions. Cranial nerves II through XII grossly intact. Normal speech. No focal neurological deficits. SKIN: Back: No erythema or ecchymosis. Rest of the skin: Warm, Dry, normal turgor, no rashes or lesions noted. ED Treatment Course - LABORATORY CBC & Chemistry Diagram: 10/20/19 21:45 10/20/19 21:45 - ADDITIONAL ORDERS Additional order review: Laboratory Results 10/20/19 10/20/19 10/20/19 21:45 21:45 20:30 RBC 4.28 MCV 89.6 MCH 29.4 MCHC 32.8 RDW 12.1 MPV 9.4 Absolute Neuts (auto) 2.2 Monocytes % 9.4 Eosinophils % 4.2 Basophils % 0.7 Sodium 139 Potassium 4.1 Chloride 110 H Carbon Dioxide 25 Anion Gap 4 L BUN 16.0 Creatinine 0.8 Est GFR (CKD-EPI)AfAm 119.60 Est GFR (CKD-EPI)NonAf 103.19 Random Glucose 100 Calcium 7.8 L Total Bilirubin 0.9 AST 69 H ALT 71 H Alkaline Phosphatase 118 H Total Protein 6.8 Albumin 3.3 L Urine Color Yellow Urine Appearance Clear Urine pH 5.5 Urine Protein Trace Urine Glucose (UA) Negative Urine Ketones Negative Urine Blood 1+ H Urine Nitrite Negative Urine Bilirubin 1+ H Urine Urobilinogen 1.0 Ur Leukocyte Esterase Negative Urine RBC 5-10 Urine WBC 0-2 Urine HCG, Qual 10/20/19 20:30 RBC MCV MCH MCHC RDW MPV Absolute Neuts (auto) Monocytes % Eosinophils % Basophils % Sodium Potassium Chloride Carbon Dioxide Anion Gap BUN Creatinine Est GFR (CKD-EPI)AfAm Est GFR (CKD-EPI)NonAf Random Glucose Calcium Total Bilirubin AST ALT Alkaline Phosphatase Total Protein Albumin Urine Color Urine Appearance Urine pH Urine Protein Urine Glucose (UA) Urine Ketones Urine Blood Urine Nitrite Urine Bilirubin Urine Urobilinogen Ur Leukocyte Esterase Urine RBC Urine WBC Urine HCG, Qual Negative 10/20/19 21:45 RBC 4.28 MCV 89.6 MCHC 32.8 RDW 12.1 MPV 9.4 Neutrophils % 42.2 L Lymphocytes % 43.5 H Monocytes % 9.4 Eosinophils % 4.2 Basophils % 0.7 - RADIOLOGY Radiology Studies Ordered: Category Date Time Status CHEST PA & LAT [RAD] Stat Radiology 10/20/19 21:15 Taken - Medications Given in the ED: ED Medications Discontinued Medications Generic Name Dose Route Start Last Admin Trade Name Freq PRN Reason Stop Dose Admin Ketorolac Tromethamine 30 mg 10/20/19 21:15 10/20/19 21:49 Toradol Injection - IVPUSH 10/20/19 21:16 30 mg ONCE ONE Administration Medical Decision Making - Medical Decision Making 10/20/19 22:18 23 yo F presenting with 1) Back pain radiating to the right leg (1 week and worsening) 2) Chest pain associated with a cough (2 weeks) 3) Abdominal pain (1 week) Examination Epigastric abd tenderness, no lower abdominal tenderness, guarding Lungs clear Back pain --> pain with leg motion/straight leg raise Chest pain -- >likely bronchitis, unlikely acs, pe, effusion Abd pain -- gastritis, biliary colic, GERD Back pain - musculoskeletal, kidney stone, pyelo Will do: labs analgesia CT Laboratory Tests 10/20/19 10/20/19 10/20/19 20:30 20:30 21:45 WBC 5.2 Hgb 12.6 Hct 38.3 Plt Count 211 Neutrophils % 42.2 L Lymphocytes % 43.5 H BUN Creatinine Urine Nitrite Negative Urine Bilirubin 1+ H Urine RBC 5-10 Urine WBC 0-2 Urine HCG, Qual Negative 10/20/19 21:45 WBC Hgb Hct Plt Count Neutrophils % Lymphocytes % BUN 16.0 Creatinine 0.8 Urine Nitrite Urine Bilirubin Urine RBC Urine WBC Urine HCG, Qual 10/21/19 00:24 CT: EXAM: ABDOMEN \T\ PELVIS CT WITH CONTR HISTORY: Pain and nausea COMPARISON: None. FINDINGS: Lung bases are clear. The visualized cardiac chambers are normal size and configuration. Normal liver, gallbladder, pancreas, spleen, adrenal glands and kidneys. The stomach and abdominal small and large bowel are normal. There is no aortic aneurysm. There is no significant retroperitoneal lymphadenopathy. The pelvic small and large bowel are normal. The appendix is normal. IUD is noted in the uterus. There is 1.6 cm involuting left ovarian cyst. There is no pelvic free fluid. No discrete pelvic lymphadenopathy is identified. IMPRESSION: No localizing signs for acute pathology. 1.6 cm involuting left ovarian cyst without free fluid. Will d/c home Follow up with PMD 10/21/19 02:34 10/21/19 02:37 Discharge - Discharge Information Problems reviewed: Yes Clinical Impression/Diagnosis: Transaminitis Low back strain Qualifiers: Encounter type: initial encounter Qualified Code(s): S39.012A - Strain of muscle, fascia and tendon of lower back, initial encounter Condition: Stable Disposition: HOME - Admission No - Additional Discharge Information Prescriptions: Lidocaine 5% Patch [Lidoderm Patch -] 1 patch TP DAILY PRN #30 patch PRN Reason: Pain Methylprednisolone [Medrol Dose Syed] 4 mg PO ASDIR #21 tablet Naproxen Sodium [Anaprox Ds] 550 mg PO BID PRN #20 tablet PRN Reason: Back Pain - Follow up/Referral Referrals: Helder Aponte MD [Primary Care Provider] - Alexis Acevedo MD, FAANS [Staff Physician] - - Patient Discharge Instructions Patient Printed Discharge Instructions: DI for Sciatica, DI for Abdominal Pain- Adult, DI for Back Pain With Sciatica Additional Instructions: Ms Warner Thank you for coming in to the ER today Your labs reveal a slight elevation in your liver numbers Your CT scan was normal Please take anti-inflammatory medications for back pain -Anaprox DS, steroids and muscle relaxants I have also ordered Lidoderm patches (if too expensive, please get Salon Pas) Please also follow up with your primary care physician Please review all your results Return to the ER for any other concerns or complaints - Post Discharge Activity Work/Back to School Note: Back to Work
== END 2019-10-21 00:40 | disposition home or self-care (01) ==
LOC: FER 20:24
PROC: 3E0333Z Introduction of Anti-inflammatory into Peripheral Vein, Percutaneous Approach (ICD-10-PCS; principal; 2019-10-20)
DX: R74.0 Nonspecific elevation of levels of transaminase and lactic acid dehydrogenase [LDH] (principal); S39.012A Strain of muscle, fascia and tendon of lower back, initial encounter; J45.909 Unspecified asthma, uncomplicated; X58.XXXA Exposure to other specified factors, initial encounter; Y93.9 Activity, unspecified; Y92.9 Unspecified place or not applicable
CPT/HCPCS: 36415; 71046-TC-FY; 74177-TC; 80053; 81003; 81015; 84703; 85025; 96374; 99284-25; Q9967

== ENCOUNTER 2019-12-21 21:35 | Emergency (ER) | payer OTHER ==
[2019-12-21 21:54] VITALS: BP 107/59; PULSE 74; TEMP 98.3; BMI 32.5
[2019-12-21] MEDS ORDERED: MECLIZINE HCL 25 MG TABLET (FP) PO ONE (21:56)
[2019-12-21] MEDS ORDERED: ONDANSETRON *ODT* 4 MG TABLET SL ONE (22:01)
[2019-12-21] MEDS ORDERED: ONDANSETRON *ODT* 4 MG TABLET ONE (22:03)
[2019-12-21] MEDS ORDERED: MECLIZINE HCL 25 MG TABLET (FP) ONE (22:05)
[2019-12-21] MEDS ORDERED: KETOROLAC TROMETHAMINE 60 MG/2 ML VIAL IM ONE (22:17)
[2019-12-21] MEDS ORDERED: KETOROLAC TROMETHAMINE 60 MG/2 ML VIAL ONE (22:23)
--- NOTE | 2019-12-21 22:46 | PDOC ---
Documentation entered by Shobha Rincon SCRIBE, acting as scribe for Ginger Pandya MD. Ginger Pandya MD: This documentation has been prepared by the adamaibe, Shobha Rincon SCRIBE, under my direction and personally reviewed by me in its entirety. I confirm that the documentation accurately reflects all work , treatment, procedures, and medical decision making performed by me. History of Present Illness - General Chief Complaint: Nausea Stated Complaint: NAUSEA/DIZZY History Source: Patient Exam Limitations: No Limitations - History of Present Illness Initial Comments: 12/21/19 21:59 The patient is a 24-year-old female who presents to the emergency department with leg pain, nausea, and dizziness. The patient reports a history of leg pain , she reports following up at the ER in the past for the pain, was given medication with improvement (patient doesnt recall the name of the medication) . The patient reports following up for the pain, was referred to therapy, denies following up for therapy. The patient reports the past few days the leg pain came back, associated with several days of nausea and dizziness. The patient states she feels like the room is spinning. Denies recent sickness. Denies fever or chills. Denies tinnitus. PAST MEDICAL HISTORY: Asthma PAST SURGICAL HISTORY: no significant history FAMILY HISTORY: no pertinent history SOCIAL HISTORY: Pt lives with family and is employed. MEDICATIONS: reviewed ALLERGIES: As per nursing notes Review of system: General: No fevers or chills, no weakness, no weight loss HEENT: No change in vision. No sore throat,. No ear pain or tinnitus. CardioVascular: No chest pain or shortness of breath Respiratory:No cough, or wheezing. Gastrointestinal: +nausea, no vomiting, diarrhea or constipation, No rectal bleeding Genitourinary: No dysuria, hematuria, or frequency Musculoskeletal: +leg pain, No joint or other muscle pain or swelling Neurologic: +dizziness, No headache, vertigo or loss of consciousness Psychiatric: nor depression Skin: No rashes or easy bruising Endocrine: no increased thirst or abnormal weight change Allergic: no skin or latex allergy All other systems reviewed and normal Physical exam: General: Well-nourished well-developed individual, no acute distress HEENT: Throat: Normal, tonsils normal, no erythema or exudate Neck: Supple, no meningeal signs, no lymphadenopathy Eyes :Pupils equal reactive and round, extraocular motion intact Chest: Nontender to palpation Cardiac: S1-S2 normal, regular rate and rhythm, no murmurs rubs or gallops Respiratory: Lungs clear to auscultation bilateral Extremities: Warm, dry, no cyanosis, clubbing, or edema Skin: No rashes Neuro: Alert and oriented x3, nonfocal exam, grossly intact, normal gait Psych: Normal mood and affect 12/21/19 23:01 Assessment and plan: This is a 24-year-old female who comes in complaining of vertigo type symptoms times a few hours. Patient given meclizine and Zofran with improvement. Patient also complaining of some leg pain that is chronic and said she has not been able to take any medication for it because of her nausea. Patient given a shot of Toradol for the leg pain and told to follow-up with her primary care or orthopedist for physical therapy. Patient discharged. Past History - Past Medical History Allergies/Adverse Reactions: Allergies Allergy/AdvReac Type Severity Reaction Status Date / Time No Known Allergies Allergy Verified 10/20/19 20:25 Home Medications: Ambulatory Orders Meclizine HCl [Antivert -] 25 mg PO QID #20 tablet 12/21/19 Ondansetron [Zofran *Odt*] 4 mg SL TID #12 od.tablet 12/21/19 Anemia: No Asthma: Yes Cancer: No Cardiac Disorders: No CVA: No COPD: No CHF: No Dementia: No Diabetes: No GI Disorders: No Disorders: No HTN: Yes (PIH) Hypercholesterolemia: No Liver Disease: No Seizures: No Thyroid Disease: No - Reproductive History (#): 1 Para: 0 Therapeutic (s) & number: No Spontaneous : 0 - Immunization History Immunization Up to Date: Yes - Psycho Social/Smoking Cessation Hx Smoking Status: No Smoking History: Never smoked Have you smoked in the past 12 months: No Number of Cigarettes Smoked Daily: 0 Hx Alcohol Use: No Drug/Substance Use Hx: No Substance Use Type: None Hx Substance Use Treatment: No *Physical Exam - Vital Signs Last Vital Signs Temp Pulse Resp BP Pulse Ox 98.3 F 74 16 107/59 L 100 12/21/19 21:37 12/21/19 21:37 12/21/19 21:37 12/21/19 21:37 12/21/19 21:37 Discharge - Discharge Information Problems reviewed: Yes Clinical Impression/Diagnosis: Viral syndrome, Vertigo Condition: Stable Disposition: HOME - Admission No - Additional Discharge Information Prescriptions: Meclizine HCl [Antivert -] 25 mg PO QID #20 tablet Ondansetron [Zofran *Odt*] 4 mg SL TID #12 od.tablet - Follow up/Referral Referrals: Helder Aponte MD [Primary Care Provider] - - Patient Discharge Instructions Additional Instructions: For the spinning and dizziness sensation take meclizine 1 tablet as often as every 4-6 hours if needed For nausea take Zofran 1 tablet 3 times a day if needed For the leg pain take naproxen 2 tablets twice a day with food do not take on an empty stomach. Return to the emergency department immediately with ANY new, persistent or worsening symptoms. Continue any medications as previously prescribed by your physician. You should follow up with your primary doctor as soon as possible regarding today's emergency department visit. . Please make sure your doctor reviews the results of your emergency evaluation. Thank you for coming to the Emergency Department today for your care. It was a pleasure to see you today. Please note that your evaluation is INCOMPLETE until you follow-up with your doctor. - Post Discharge Activity
== END 2019-12-21 23:13 | disposition home or self-care (01) ==
LOC: SUPCPDRO 21:35 → FER 21:35
PROC: 3E0233Z Introduction of Anti-inflammatory into Muscle, Percutaneous Approach (ICD-10-PCS; principal; 2019-12-21)
DX: B34.9 Viral infection, unspecified (principal); R42 Dizziness and giddiness; I10 Essential (primary) hypertension; J45.909 Unspecified asthma, uncomplicated
CPT/HCPCS: 81025; 99284-25; Q0162

== ENCOUNTER 2020-05-15 10:41 | Emergency (ER) | payer OTHER ==
--- NOTE | 2020-05-15 10:47 | PDOC ---
Rapid Medical Evaluation Chief Complaint: Pain, Acute Time Seen by Provider: 05/15/20 10:43 Medical Evaluation: Allergies Allergy/AdvReac Type Severity Reaction Status Date / Time No Known Allergies Allergy Verified 03/28/20 19:50 05/15/20 10:43 Pt , 9 weeks preg, LMP 02/23/2020 presents to the ER with R lower abdominal pain for two days. She states that it feels like a "needle" pain. Admits to associated nausea. Denies vaginal bleeding, dysuria, hematuria. She states she has not had an ultrasound yet. Exam: TTP RLQ Orders: labs, TVUS Pt to proceed to the ER for further evaluation Discharge Disposition - Diagnosis Abdominal pain affecting - Referrals - Patient Instructions - Post Discharge Activity
[2020-05-15 10:53] VITALS: BP 104/57; PULSE 73; TEMP 97.8; BMI 37.8
--- NOTE | 2020-05-15 10:57 | PDOC ---
History of Present Illness - General Chief Complaint: Pain, Acute Stated Complaint: STOMACH PAIN (PREG) Time Seen by Provider: 05/15/20 10:43 History Source: Patient Exam Limitations: No Limitations - History of Present Illness Travel History: No Initial Comments: 05/15/20 11:04 24 y/o female to the ED with c/o with Timing/Duration: reports: constant Quality: reports: mild Abdominal Pain Onset Location: reports: suprapubic (rt and mid) Pain Radiation: denies: no radiation Activities at Onset: reports: none Aggravating Factors: improves with: None Alleviating Factors: improves with: None Past History - Travel History Traveled outside of the country in the last 30 days: No Close contact w/someone who was outside of country & ill: No - Medical History Allergies/Adverse Reactions: Allergies Allergy/AdvReac Type Severity Reaction Status Date / Time No Known Allergies Allergy Verified 03/28/20 19:50 Home Medications: Ambulatory Orders Albuterol Sulfate Inhaler - [Ventolin Hfa Inhaler -] 1 puff IH PRN 03/28/20 Anemia: No Asthma: Yes Cancer: No Cardiac Disorders: No CVA: No COPD: No CHF: No Dementia: No Diabetes: No GI Disorders: No Disorders: No HTN: Yes (PIH) Hypercholesterolemia: No Liver Disease: No Seizures: No Thyroid Disease: No - Reproductive History (#): 1 Para: 0 Therapeutic (s) & number: No Spontaneous : 0 - Immunization History Immunization Up to Date: Yes - Psycho-Social/Smoking History Patient Lives Alone: No Lives with/in: parents Smoking Status: No Smoking History: Never smoked Have you smoked in the past 12 months: No Number of Cigarettes Smoked Daily: 0 Information on smoking cessation initiated: No - Substance Abuse Hx (Audit-C & DAST Scrn) How often the patient has a drink containing alcohol: Never Score: In Men: 4 or > Positive; In Women: 3 or > Positive: 0 Screen Result (Pos requires Nsg. Audit-10AR): Negative In the last yr the pt used illegal drug/Rx for NonMed reason: No Score: Yes response is considered Positive: 0 Screen Result (Positive result requires Nsg. DAST-10): Negative Review of Systems - Review of Systems Able to Perform ROS?: No Is the patient limited [place] proficient: No Constitutional: No: Symptoms Reported HEENTM: No: Symptoms Reported Respiratory: No: Symptoms reported Cardiac (ROS): No: Symptoms Reported ABD/GI: Yes: Abdominal cramping : No: Symptoms Reported Musculoskeletal: No: Symptoms Reported Integumentary: No: Symptoms Reported Neurological: No: Symptoms reported Endocrine: No: Symptoms Reported Hematologic/Lymphatic: No: Symptoms Reported *Physical Exam - Vital Signs Last Vital Signs Temp Pulse Resp BP Pulse Ox 97.8 F 73 18 104/57 L 99 05/15/20 10:43 05/15/20 10:43 05/15/20 10:43 05/15/20 10:43 05/15/20 10:43 - Physical Exam General Appearance: Yes: Nourished, Appropriately Dressed. No: Apparent Distress HEENT: negative: Pale Conjunctivae Neck: positive: Supple Respiratory/Chest: positive: Lungs Clear, Normal Breath Sounds. negative: Respiratory Distress, Accessory Muscle Use Cardiovascular: positive: Regular Rhythm, Regular Rate. negative: Murmur Gastrointestinal/Abdominal: positive: Soft, Tenderness (right suprapubic and mid suprapubic) Extremity: positive: Normal Inspection Integumentary: positive: Normal Color, Warm, Moist Neurologic: positive: Motor Strength 5/5 (ambulatory) ED Treatment Course - LABORATORY CBC & Chemistry Diagram: 05/15/20 11:15 05/15/20 11:15 Medical Decision Making - Medical Decision Making 05/15/20 11:29 CC: Lower abd pain since yesterday which she describes as a cramping sensation. She denies vag bleeding or discharge Exam: Right and mid suprapubic tenderness on exam no CVA tenderness. Vital signs stable Plan: Labs urine and ultrasound ordered patient offered Tylenol but refused at this time 05/15/20 12:34 Laboratory Tests 05/15/20 05/15/20 11:15 11:15 WBC 9.5 Hgb 12.0 Hct 35.7 Absolute Neuts (auto) 6.7 Urine Ketones 1+ H Urine Nitrite Negative Ur Leukocyte Esterase 1+ H Urine WBC (Auto) 73 Urine Bacteria (Auto) 1099 Single live intrauterine estimated sonographic gestational age of 11 weeks 3 days with heart rate of 150 bpm. Patient be discharged and treated for urinary tract infection based on bacterial count and status. Urine culture was sent. No previous urine culture on file Discharge - Discharge Information Problems reviewed: Yes Clinical Impression/Diagnosis: Abdominal pain affecting , Urinary tract infection Condition: Improved Disposition: HOME - Follow up/Referral Referrals: Helder Aponte MD [Primary Care Provider] - - Patient Discharge Instructions Patient Printed Discharge Instructions: DI for Urinary Tract Infection (UTI) Additional Instructions: Please increase your fluid intake as your urine reflected you are not drinking enough fluids. Please clean from front to back. Wear cotton underwear. Take antibiotics as prescribed. Urine culture was also sent and will be notified if there is any changes to your antibiotic course. If you develop any back pain, severe abdominal pain, or fever while on antibiotics please return to the ED - Post Discharge Activity
[2020-05-15 12:10] LABS: BASO % 0.3 % (0-2.0); EOS % 1.5 % (0-4.5); HEMATOCRIT 35.7 % (32.4-45.2); LYMPH % 23.1 % (8-40); MCH 31.3 pg (25.7-33.7); MCHC 33.8 g/dl (32.0-36.0); MEAN CELL VOLUME 92.6 fl (80-96); MEAN PLT VOLUME 9.7 fl (7.5-11.1); MONO % 4.1 % (3.8-10.2); PLATELET COUNT 225 K/MM3 (134-434); RBC 3.85 M/mm3 (3.60-5.2); WHITE BLOOD COUNT 9.5 K/mm3 (4.0-10.0)
[2020-05-15 12:20] LABS: EPI CELLS >36 /uL (0-25.1); HYALINE CASTS 3 /uL (0-3.1); URINE APPEARANCE CLEAR; URINE BACTERIA 1099 /uL (0-1359); URINE BILIRUBIN NEGATIVE (NEGATIVE); URINE COLOR YELLOW; URINE GLUCOSE (UA) NEGATIVE (NEGATIVE); URINE KETONE 1+ (NEGATIVE); URINE LEUK ESTERASE 1+ (NEGATIVE); URINE NITRITE NEGATIVE (NEGATIVE); URINE PROTEIN NEGATIVE (NEGATIVE); URINE RBC 19 /uL (0-23.9); URINE WBC 73 /uL (0-25.8)
[2020-05-15 12:43] LABS: ALBUMIN 3.2 g/dl (3.4-5.0); BILIRUBIN,TOTAL 0.6 mg/dL (0.2-1); BLOOD UREA NITROGEN 10.3 mg/dL (7-18); CALCIUM 8.8 mg/dL (8.5-10.1); CREATININE 0.6 mg/dL (0.55-1.3); POTASSIUM 3.9 mmol/L (3.5-5.1); TOT PROT 7.3 g/dl (6.4-8.2)
== END 2020-05-15 12:55 | disposition home or self-care (01) ==
LOC: JER 10:41
DX: O26.899 Other specified pregnancy related conditions, unspecified trimester (principal); R10.9 Unspecified abdominal pain; O23.41 Unspecified infection of urinary tract in pregnancy, first trimester; Z3A.11 11 weeks gestation of pregnancy
CPT/HCPCS: 36415; 76817-TC; 80053; 81003; 84702; 85025; 86850; 86900; 86901; 87086; 99284-25

== ENCOUNTER 2020-06-06 09:25 | Emergency (ER) | payer OTHER ==
[2020-06-06 09:31] VITALS: BP 108/60; PULSE 71; TEMP 98.2; BMI 41.1
--- NOTE | 2020-06-06 09:54 | PDOC ---
History of Present Illness - General Chief Complaint: Pain Stated Complaint: , ABD PAIN Time Seen by Provider: 06/06/20 09:38 - History of Present Illness Initial Comments: 06/06/20 13:55 Chief complaint: Epigastric pain HPI: Recurrent sharp epigastric pain without radiation since yesterday. The pain lasts several minutes and then subsides. It was accompanied by retching this a.m. No verenice vomiting. No hematemesis melena or bloody stool. No diarrhea or constipation. The pain does not seem to be related to food intake, occurs randomly, but occurred last night while lying down and going to sleep. Patient is approximately 14 weeks , 2, para 1, with 4-year-old child. Her first was complicated by preeclampsia which required a C- section at 38 weeks. Review of systems: Denies fever/chills, headache, URI symptoms, sore throat, cough, chest pain, shortness of breath, lower abdominal or pelvic pain, vaginal bleeding or discharge. She had morning sickness earlier in this , which seems to have resolved. Her appetite is good. Remainder of systems reviewed and negative. Had sonogram in early May which she was told showed a normal . Past medical history: No significant medical or surgical problems in the past other than preeclampsia with her initial . No persistent hypertension. No diabetes. Social/family history: Denies tobacco alcohol or drugs. Stable home and family. No social problems Physical exam: Alert and oriented well-developed well-nourished no acute distress cheerful and cooperative. No pain at present. Afebrile, vital signs normal No pallor or icterus. PERRLA 4 mm, fundi benign, ENT clear Neck supple without bruit mass or nodes Lungs clear with full breath sounds bilaterally CV S1-S2 normal without murmur rub or gallop pulses full and symmetric no JVD or bruits. No edema. 90 and regular Abdomen nondistended. Bowel sounds normal. Soft without mass organomegaly. Tenderness could not be elicited in the epigastrium, right upper quadrant, or lower quadrant/pelvic region, even with vigorous deep palpation. heart sounds right lower quadrant, strong, 140/min. Neurological C2 to 12 intact. Strength full and symmetric. No focal sensorimotor deficits. Gait stable and unimpaired. Deep tendon reflexes 2+ symmetric, no clonus. Impression: Intermittent epigastric pain, this morning accompanied by retching. No lower abdominal or pelvic pain or tenderness, no vaginal bleeding or discharge. heart tones are good, probably signifying a healthy intrauterine , since recent ultrasound performed by her [facility] was reportedly normal. Plan: Labs and sonogram, further evaluation and treatment depending on results. Past History - Medical History Allergies/Adverse Reactions: Allergies Allergy/AdvReac Type Severity Reaction Status Date / Time No Known Allergies Allergy Verified 06/06/20 09:27 Home Medications: Ambulatory Orders Albuterol Sulfate Inhaler - [Ventolin Hfa Inhaler -] 1 puff IH PRN 03/28/20 Anemia: No Asthma: Yes Cancer: No Cardiac Disorders: No CVA: No COPD: No CHF: No Dementia: No Diabetes: No GI Disorders: No Disorders: No HTN: Yes (PI) Hypercholesterolemia: No Liver Disease: No Seizures: No Thyroid Disease: No Other medical history: LMP 02/23/20 - Reproductive History Is Patient Now?: Yes (#): 2 Para: 1 Therapeutic (s) & number: No Spontaneous : 0 - Immunization History Immunization Up to Date: Yes - Psycho-Social/Smoking History Smoking Status: No Smoking History: Never smoked Have you smoked in the past 12 months: No Number of Cigarettes Smoked Daily: 0 Information on smoking cessation initiated: No - Substance Abuse Hx (Audit-C & DAST Scrn) How often the patient has a drink containing alcohol: Never Score: In Men: 4 or > Positive; In Women: 3 or > Positive: 0 Screen Result (Pos requires Nsg. Audit-10AR): Negative In the last yr the pt used illegal drug/Rx for NonMed reason: No Score: Yes response is considered Positive: 0 Screen Result (Positive result requires Nsg. DAST-10): Negative *Physical Exam - Vital Signs Last Vital Signs Temp Pulse Resp BP Pulse Ox 98.2 F 71 18 108/60 100 06/06/20 09:25 06/06/20 09:25 06/06/20 09:25 06/06/20 09:25 06/06/20 09:25 ED Treatment Course - LABORATORY CBC & Chemistry Diagram: 06/06/20 10:14 06/06/20 10:14 Medical Decision Making - Medical Decision Making 06/06/20 14:04 CBC, chemistries, showed no significant abnormalities. Ultrasound of the abdomen, including the gallbladder, was negative. Ultrasound of the pelvis showed a normal intrauterine with good heartbeat and no significant abnormalities. Presumptive diagnosis of gastric spasm, possibly due to distention of the uterus, and or acid reflux. Other possibility mild gastroenteritis Instructions for symptomatic treatment, use of Mylanta if symptoms are severe, and discussed the problem with [facility] for further recommendations. Fully ambulatory in no pain at discharge to follow-up as directed Discharge - Discharge Information Problems reviewed: Yes Clinical Impression/Diagnosis: Stomach spasm Condition: Stable Disposition: HOME - Admission No - Follow up/Referral Referrals: Helder Aponte MD [Primary Care Provider] - - Patient Discharge Instructions Patient Printed Discharge Instructions: DI for Gastroesophageal Reflux Disease (GERD) Additional Instructions: Eat frequent small meals. Do not overload the stomach. Mylanta as needed. Do not eat for 2 hours or so before lying down to go to sleep in the evening. See your [facility] physician and discuss your symptoms. He may have some further suggestions. Keep your sonogram results for future reference. Return to ER if symptoms become more severe or additional symptoms develop. - Post Discharge Activity
[2020-06-06] MEDS ORDERED: SODIUM CHLORIDE 1,000 ML IV STA (09:55)
[2020-06-06] MEDS ORDERED: MAG HYDROX/AL HYDROX/SIMETH 30 ML UNIT-DOSE CUP PO ONE (09:56)
[2020-06-06] MEDS ORDERED: MAG HYDROX/AL HYDROX/SIMETH 30 ML UNIT-DOSE CUP ONE (10:19)
[2020-06-06 10:31] LABS: HCG,QUALITATIVE URINE Positive
[2020-06-06 10:35] LABS: BASO % 0.7 % (0-2.0); EOS % 1.1 % (0-4.5); HEMATOCRIT 37.5 % (32.4-45.2); HEMOGLOBIN 11.9 GM/dl (10.7-15.3); LYMPH % 21.4 % (8-40); MCH 30.5 pg (25.7-33.7); MCHC 31.9 g/dl (32.0-36.0); MEAN CELL VOLUME 95.8 fl (80-96); MEAN PLT VOLUME 9.9 fl (7.5-11.1); MONO % 6.1 % (3.8-10.2); NEUT % 70.7 % (42.8-82.8); PLATELET COUNT 253 K/MM3 (134-434); RBC 3.91 M/mm3 (3.60-5.2); RDW 11.9 % (11.6-15.6); WHITE BLOOD COUNT 8.3 K/mm3 (4.0-10.8)
[2020-06-06 10:43] LABS: BILIRUBIN,TOTAL 0.3 mg/dl (0.2-1); CALCIUM 8.6 mg/dl (8.5-10); CREATININE 0.5 mg/dl (0.55-1.3); TOT PROT 6.9 g/dl (6.4-8.2)
[2020-06-06 11:20] LABS: EPITHELIAL CELLS FEW /hpf
[2020-06-06 11:21] LABS: URINE MUCUS 1+
== END 2020-06-06 13:00 | disposition home or self-care (01) ==
LOC: FER 09:25
DX: R25.2 Cramp and spasm (principal)
CPT/HCPCS: 36415; 76705-TC; 76801-TC; 80053; 81003; 81015; 83690; 84703; 85025; 87086; 99284-25

== ENCOUNTER 2020-11-23 05:15 | Inpatient (IN) | payer OTHER ==
[2020-11-23] MEDS ORDERED: CITRIC ACID/SODIUM CITRATE 30 ML UNIT-DOSE CUP PO ONE (05:45)
[2020-11-23] MEDS ORDERED: ELECTROLYTE-148 SOLN 500 ML IV ONE ×2 (05:45→08:23)
[2020-11-23 06:08] VITALS: BMI 44.2
[2020-11-23] MEDS ORDERED: ELECTROLYTE-148 SOLN 1,000 ML IV SCH ×2 (06:15→08:30)
[2020-11-23 06:59] LABS: BASO % 0.7 % (0-2.0); EOS % 1.2 % (0-4.5); HEMATOCRIT 32.1 % (32.4-45.2); HEMOGLOBIN 10.7 GM/dL (10.7-15.3); LYMPH % 23.6 % (8-40); MCH 29.4 pg (25.7-33.7); MCHC 33.2 g/dl (32.0-36.0); MEAN CELL VOLUME 88.5 fl (80-96); MEAN PLT VOLUME 11.4 fl (7.5-11.1); MONO % 5.5 % (3.8-10.2); PLATELET COUNT 202 K/MM3 (134-434); RBC 3.63 M/mm3 (3.60-5.2); RDW 13.1 % (11.6-15.6); WHITE BLOOD COUNT 13.5 K/mm3 (4.0-10.0)
[2020-11-23 07:07] LABS: INR 0.96 (0.83-1.09); PROTHROMBIN TIME (PATIENT) 11.6 SEC (9.7-13.0)
[2020-11-23 07:09] LABS: ACTIVATED PTT 29.4 SECONDS (25.2-36.5)
[2020-11-23 07:12] LABS: POTASSIUM 4.1 mmol/L (3.5-5.1)
[2020-11-23 07:13] LABS: CALCIUM 8.2 mg/dL (8.5-10.1)
[2020-11-23 07:14] LABS: BLOOD UREA NITROGEN 14.2 mg/dL (7-18)
[2020-11-23 07:17] LABS: CREATININE 0.8 mg/dL (0.55-1.3)
[2020-11-23] MEDS ORDERED: PROPOFOL 20 ML ONE (07:55)
[2020-11-23] MEDS ORDERED: SUCCINYLCHOLINE CHLORIDE 200 MG/10 ML SYRINGE ONE (07:55)
[2020-11-23] MEDS ORDERED: morphine SULFATE/PF 0.5 MG/ML (2cc Syringe - QUVA) ONE ×2 (07:55→08:41)
[2020-11-23] MEDS ORDERED: ePHEDrine SULFATE 50 MG/1 ML AMPULE ONE (07:56)
[2020-11-23] MEDS ORDERED: morphine SULFATE/PF 0.5 MG/ML (2cc Syringe - QUVA) SPIN ONE (08:05)
[2020-11-23] MEDS ORDERED: ONDANSETRON 4 MG/2 ML VIAL IVPUSH PRN (08:05)
[2020-11-23] MEDS ORDERED: METHYLERGONOVINE MALEATE 0.2 MG/1 ML AMP IM PRN (10:25)
[2020-11-23] MEDS ORDERED: oxyCODONE HCL 5 MG TABLET PO PRN (10:25)
[2020-11-23] MEDS ORDERED: OXYTOCIN 20 UNITS in 0.9% NS 20 UNIT/1,000 ML INFUS.BAG IV SCH (10:30)
[2020-11-23] MEDS ORDERED: OXYTOCIN 20 UNITS in 0.9% NS 20 UNIT/1,000 ML INFUS.BAG IV ONE (10:30)
[2020-11-23] MEDS ORDERED: IBUPROFEN 800 MG/8 ML IJ IVPB ONE (10:47)
[2020-11-23] MEDS: IBUPROFEN 800 MG/8 ML IJ IVPB PRN (10:51)
[2020-11-23] MEDS: FERROUS SO4 325 MG TABLET (FP) PO SCH (17:16)
[2020-11-23] MEDS ORDERED: SENNOSIDES/DOCUSATE COMBO (SENNA PLUS) TABLET (UD) PO PRN (22:00)
[2020-11-24] MEDS: IBUPROFEN 800 MG/8 ML IJ IVPB PRN (01:15)
[2020-11-24] MEDS ORDERED: OXYTOCIN 20 UNITS in 0.9% NS 20 UNIT/1,000 ML INFUS.BAG IV ONE (05:16)
[2020-11-24 09:31] LABS: BASO % 0.3 % (0-2.0); EOS % 0.5 % (0-4.5); HEMATOCRIT 25.9 % (32.4-45.2); HEMOGLOBIN 8.7 GM/dL (10.7-15.3); LYMPH % 16.3 % (8-40); MCH 30.1 pg (25.7-33.7); MCHC 33.6 g/dl (32.0-36.0); MEAN CELL VOLUME 89.6 fl (80-96); MEAN PLT VOLUME 10.5 fl (7.5-11.1); MONO % 4.8 % (3.8-10.2); NEUT % 78.1 % (42.8-82.8); PLATELET COUNT 189 K/MM3 (134-434); RBC 2.89 M/mm3 (3.60-5.2); RDW 13.3 % (11.6-15.6); WHITE BLOOD COUNT 12.7 K/mm3 (4.0-10.0)
[2020-11-24] MEDS: FERROUS SO4 325 MG TABLET (FP) PO SCH ×2 (09:36→17:02)
[2020-11-24] MEDS: PRENATAL VITAMINS W/ FOLIC ACID TABLET (FP) PO SCH (09:36)
[2020-11-24] MEDS ORDERED: BISACODYL 10 MG SUPP.RECT RC PRN (10:25)
[2020-11-24] MEDS: ACETAMINOPHEN 325 MG TABLET (FP) PO PRN ×2 (17:01→20:57)
[2020-11-24] MEDS: IBUPROFEN 600 MG TABLET (FP) PO PRN ×2 (17:01→20:58)
[2020-11-24] MEDS: SIMETHICONE 80 MG TAB.CHEW (FP) PO PRN (17:02)
[2020-11-24] MEDS ORDERED: diphenhydrAMINE HCL 25 MG CAPSULE (FP) PO PRN (20:05)
[2020-11-25] MEDS: FERROUS SO4 325 MG TABLET (FP) PO SCH (07:43)
[2020-11-25] MEDS: IBUPROFEN 600 MG TABLET (FP) PO PRN (07:43)
[2020-11-25] MEDS: ACETAMINOPHEN 325 MG TABLET (FP) PO PRN (07:43)
[2020-11-25] MEDS: SIMETHICONE 80 MG TAB.CHEW (FP) PO PRN (07:44)
[2020-11-25 08:48] VITALS: BP 124/90; PULSE 71; TEMP 97.5
[2020-11-25] MEDS: PRENATAL VITAMINS W/ FOLIC ACID TABLET (FP) PO SCH (13:14)
== END 2020-11-25 10:40 | disposition home or self-care (01) | DRG 540 ==
LOC: JLDR 05:15 → J3W 11:02
PROVIDERS: ADMIT Obstetrics & Gynecology; ATTEND Obstetrics & Gynecology
PROC: 10D00Z1 Extraction of Products of Conception, Low, Open Approach (ICD-10-PCS; principal; 2020-11-23)
DX: O34.219 Maternal care for unspecified type scar from previous cesarean delivery (principal); O99.214 Obesity complicating childbirth; E66.01 Morbid (severe) obesity due to excess calories; O13.4 Gestational [pregnancy-induced] hypertension without significant proteinuria, complicating childbirth; Z3A.39 39 weeks gestation of pregnancy; Z37.0 Single live birth
CPT/HCPCS: 36415; 80048; 85025; 85610; 85730; 86780; 86850; 86900; 86901; 88307-TC

== ENCOUNTER 2021-12-14 08:58 | Emergency (ER) | payer OTHER ==
[2021-12-14 09:20] VITALS: BMI 39.4
[2021-12-14] MEDS ORDERED: FAMOTIDINE 10 MG TABLET PO ONE (09:47)
[2021-12-14] MEDS ORDERED: MAG HYDROX/AL HYDROX/SIMETH 30 ML UNIT-DOSE CUP PO ONE (09:47)
[2021-12-14] MEDS ORDERED: ONDANSETRON *ODT* 4 MG TABLET SL ONE (09:47)
[2021-12-14] MEDS ORDERED: ACETAMINOPHEN 500 MG TABLET (FP) PO ONE (09:48)
[2021-12-14] MEDS ORDERED: FAMOTIDINE 20 MG TABLET ONE (09:53)
[2021-12-14] MEDS ORDERED: ACETAMINOPHEN 325 MG TABLET (FP) ONE (09:53)
[2021-12-14] MEDS ORDERED: MAG HYDROX/AL HYDROX/SIMETH 30 ML UNIT-DOSE CUP ONE (09:53)
[2021-12-14] MEDS ORDERED: ONDANSETRON *ODT* 4 MG TABLET ONE (09:53)
[2021-12-14 10:32] LABS: ALBUMIN 3.7 g/dl (3.4-5.0); BILIRUBIN,TOTAL 0.7 mg/dl (0.2-1); CALCIUM 8.4 mg/dl (8.5-10); CREATININE 0.8 mg/dl (0.55-1.3); TOT PROT 7.5 g/dl (6.4-8.2)
[2021-12-14] MEDS ORDERED: METOCLOPRAMIDE HCL INJECTION 10 MG/2 ML VIAL IVPUSH ONE (11:10)
[2021-12-14] MEDS ORDERED: METOCLOPRAMIDE HCL INJECTION 10 MG/2 ML VIAL ONE (11:12)
[2021-12-14 11:33] LABS: BASO % 0.3 % (0-2.0); EOS % 0.2 % (0-4.5); HEMATOCRIT 35.4 % (32.4-45.2); HEMOGLOBIN 12.1 GM/dL (10.7-15.3); LYMPH % 21.2 % (8-40); MCH 28.5 pg (25.7-33.7); MCHC 34.1 g/dl (32.0-36.0); MEAN CELL VOLUME 83.4 fl (80-96); MEAN PLT VOLUME 9.2 fl (7.5-11.1); MONO % 5.7 % (3.8-10.2); NEUT % 72.6 % (42.8-82.8); PLATELET COUNT 239 10^3/uL (134-434); RBC 4.25 M/mm3 (3.60-5.2); RDW 13.7 % (11.6-15.6); WHITE BLOOD COUNT 6.6 K/mm3 (4.0-10.0)
[2021-12-14 11:58] VITALS: BP 110/70; PULSE 84; TEMP 98.7
== END 2021-12-14 12:19 | disposition home or self-care (01) ==
LOC: FER 08:58
PROC: 3E033GC Introduction of Other Therapeutic Substance into Peripheral Vein, Percutaneous Approach (ICD-10-PCS; principal; 2021-12-14)
DX: R10.13 Epigastric pain (principal)
CPT/HCPCS: 36415; 80053; 81025; 83690; 85025; 93005; 96374; 99284-25; Q0162

== ENCOUNTER 2023-03-31 18:02 | Emergency (ER) | payer OTHER ==
[2023-03-31 18:16] VITALS: BP 132/76; PULSE 81; RESP 16; TEMP 97.6; BMI 37.8
[2023-03-31] MEDS ORDERED: TETRACAINE 0.5% OPHTH SOLN 2 ML BOTTLE ONE (18:43)
[2023-03-31] MEDS ORDERED: FLUORESCEIN NA 1 EA STRIP ONE (18:44)
== END 2023-03-31 19:03 | disposition home or self-care (01) ==
LOC: FER 18:02
DX: H11.433 Conjunctival hyperemia, bilateral (principal)
CPT/HCPCS: 99282-25

== ENCOUNTER 2023-06-28 11:00 | Emergency (ER) | payer OTHER ==
[2023-06-28 11:14] VITALS: BMI 41.1
[2023-06-28] MEDS ORDERED: ACETAMINOPHEN 500 MG TABLET (FP) PO ONE (11:25)
[2023-06-28] MEDS ORDERED: DEXAMETHASONE SOD PHOSPHATE 10 MG/1 ML VIAL PO ONE (11:25)
[2023-06-28] MEDS ORDERED: DEXAMETHASONE SOD PHOSPHATE/PF 10 MG/ML SDV ONE (11:29)
[2023-06-28] MEDS ORDERED: ACETAMINOPHEN 500 MG TABLET (FP) ONE (11:29)
[2023-06-28 12:15] VITALS: BP 129/61; TEMP 99.4
[2023-06-28 12:35] VITALS: PULSE 100; RESP 16
[2023-06-28 14:24] LABS: THROAT:GRP A STREP DETECTED (NOTDETECTED)
== END 2023-06-28 13:00 | disposition home or self-care (01) ==
LOC: FER 11:00
PROC: 3E033GC Introduction of Other Therapeutic Substance into Peripheral Vein, Percutaneous Approach (ICD-10-PCS; principal; 2023-06-28)
DX: R05.9 Cough, unspecified (principal); R51.9 Headache, unspecified; H92.01 Otalgia, right ear; R07.0 Pain in throat; R68.83 Chills (without fever); U07.1 COVID-19; J06.9 Acute upper respiratory infection, unspecified; H66.91 Otitis media, unspecified, right ear
CPT/HCPCS: 0241U-QW; 87651; 99284-25; J1100

== ENCOUNTER 2023-12-18 21:41 | Emergency (ER) | payer OTHER ==
[2023-12-18 21:50] VITALS: BP 120/82; PULSE 62; RESP 16; TEMP 98.2; BMI 41.2
[2023-12-18 23:17] LABS: HCG,QUALITATIVE URINE Negative
[2023-12-18 23:34] LABS: EPITHELIAL CELLS 0-5 /hpf; URINE MUCUS 1+
[2023-12-18] MEDS ORDERED: ACETAMINOPHEN 500 MG TABLET (FP) ONE (23:35)
[2023-12-18] MEDS: ACETAMINOPHEN 500 MG TABLET (FP) PO ONE (23:36)
== END 2023-12-19 00:39 | disposition home or self-care (01) ==
LOC: FER 21:41
DX: G44.209 Tension-type headache, unspecified, not intractable (principal)
CPT/HCPCS: 81003; 81015; 84703; 99283-25